=== PATIENT | female | born 2005 | race Caucasian/White ===

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

== ENCOUNTER 2023-08-13 19:42 | Emergency (ER) | payer OTHER ==
[~2023-08-13] VITALS: Ht 162.6 cm; Wt 56.7 kg
[2023-08-13 20:12] VITALS: BP 107/94
== END 2023-08-13 20:32 | disposition home or self-care (01) ==
LOC: ER 19:42
DX: R50.9 Fever, unspecified (principal); R11.2 Nausea with vomiting, unspecified; R10.30 Lower abdominal pain, unspecified; R42 Dizziness and giddiness; L56.8 Other specified acute skin changes due to ultraviolet radiation; Z53.29 Procedure and treatment not carried out because of patient's decision for other reasons
CPT/HCPCS: 99281